=== PATIENT | female | born 1985 | race Caucasian/White ===

== ENCOUNTER 2017-03-29 15:15 | Emergency (ER) | payer OTHER | END 2017-03-29 18:25 | disposition home or self-care (01) | LOC: FTE 15:15 | DX: M54.12 Radiculopathy, cervical region (principal); Z76.0 Encounter for issue of repeat prescription | CPT/HCPCS: 99284; Z7502 ==

== ENCOUNTER 2017-04-06 05:07 | Emergency (ER) | payer OTHER ==
[2017-04-06] MEDS: predniSONE 20 MG TAB PO (06:41)
[2017-04-06] MEDS: DIPHENHYDRAMINE 25 MG CAP PO (06:42)
== END 2017-04-06 06:58 | disposition home or self-care (01) ==
LOC: FTE 05:07
DX: R21 Rash and other nonspecific skin eruption (principal); F17.210 Nicotine dependence, cigarettes, uncomplicated
CPT/HCPCS: 99283; J7512

== ENCOUNTER 2017-07-23 23:22 | Emergency (ER) | payer SELFPAY, OTHER | END 2017-07-24 01:04 | disposition left against medical advice (07) | LOC: FTE 23:22 | DX: Z53.21 Procedure and treatment not carried out due to patient leaving prior to being seen by health care provider (principal) ==

== ENCOUNTER 2017-09-11 17:45 | Emergency (ER) | payer OTHER | END 2017-09-11 18:41 | disposition home or self-care (01) | LOC: FTE 17:45 | DX: R22.0 Localized swelling, mass and lump, head (principal); Z71.1 Person with feared health complaint in whom no diagnosis is made; Z87.891 Personal history of nicotine dependence | CPT/HCPCS: 99283; Z7502 ==

== ENCOUNTER 2017-10-17 04:21 | Emergency (ER) | payer OTHER | END 2017-10-17 05:16 | disposition home or self-care (01) | LOC: FTE 04:21 | DX: Z76.0 Encounter for issue of repeat prescription (principal); J45.909 Unspecified asthma, uncomplicated; F17.210 Nicotine dependence, cigarettes, uncomplicated | CPT/HCPCS: 99281; Z7502 ==

== ENCOUNTER 2018-01-09 05:03 | Emergency (ER) | payer OTHER | END 2018-01-09 06:07 | disposition home or self-care (01) | LOC: FTE 05:03 | DX: T16.1XXA Foreign body in right ear, initial encounter (principal); J45.909 Unspecified asthma, uncomplicated; F17.210 Nicotine dependence, cigarettes, uncomplicated; X58.XXXA Exposure to other specified factors, initial encounter; Y92.9 Unspecified place or not applicable | CPT/HCPCS: 69200; 99282-25 ==

== ENCOUNTER 2018-05-20 01:04 | Emergency (ER) | payer SELFPAY, OTHER | END 2018-05-20 02:40 | disposition left against medical advice (07) | LOC: FTE 01:04 | DX: Z53.21 Procedure and treatment not carried out due to patient leaving prior to being seen by health care provider (principal) ==

== ENCOUNTER 2018-05-23 12:22 | Emergency (ER) | payer OTHER ==
[2018-05-23] MEDS: DIPHENHYDRAMINE 25 MG CAP PO (14:41)
[2018-05-23] MEDS: ACETAMINOPHEN 500 MG TAB PO (14:41)
== END 2018-05-23 15:43 | disposition home or self-care (01) ==
LOC: FTE 15:43
DX: R21 Rash and other nonspecific skin eruption (principal)
CPT/HCPCS: 99282; Z7502

== ENCOUNTER 2018-06-02 12:38 | Emergency (ER) | payer OTHER | END 2018-06-02 15:37 | disposition home or self-care (01) | LOC: FTE 12:38 | DX: L21.9 Seborrheic dermatitis, unspecified (principal); R05 Cough; J45.909 Unspecified asthma, uncomplicated; Z76.0 Encounter for issue of repeat prescription | CPT/HCPCS: 99283; Z7502 ==

== ENCOUNTER 2018-06-16 20:37 | Emergency (ER) | payer SELFPAY, OTHER | END 2018-06-16 22:53 | disposition left against medical advice (07) | LOC: FTE 20:37 | DX: Z53.21 Procedure and treatment not carried out due to patient leaving prior to being seen by health care provider (principal) ==

== ENCOUNTER 2018-09-04 04:36 | Emergency (ER) | payer OTHER | END 2018-09-04 05:32 | disposition home or self-care (01) | LOC: FTE 04:36 | DX: M25.50 Pain in unspecified joint (principal); J02.9 Acute pharyngitis, unspecified; R11.2 Nausea with vomiting, unspecified; J45.909 Unspecified asthma, uncomplicated | CPT/HCPCS: 99282; Z7502 ==

== ENCOUNTER 2018-09-25 18:08 | Emergency (ER) | payer OTHER ==
[2018-09-25] MEDS: LORAZEPAM 0.5 MG TAB PO (19:24)
== END 2018-09-25 19:30 | disposition home or self-care (01) ==
LOC: FTE 18:08
DX: F15.10 Other stimulant abuse, uncomplicated (principal); J45.909 Unspecified asthma, uncomplicated
CPT/HCPCS: 93005; 99283-25

== ENCOUNTER 2018-10-15 08:18 | Emergency (ER) | payer OTHER | END 2018-10-15 09:30 | disposition home or self-care (01) | LOC: FTE 09:30 | DX: L55.9 Sunburn, unspecified (principal); J45.909 Unspecified asthma, uncomplicated; R52 Pain, unspecified | CPT/HCPCS: 99282; Z7502 ==

== ENCOUNTER 2018-10-20 03:50 | Emergency (ER) | payer OTHER ==
[2018-10-20 04:43] LABS: ADD UMIC YES; UR ASCORBIC ACID 20 mg/dL (NEGATIVE); UR BACTERIA FEW /HPF (NONE SEEN); UR BILIRUBIN (Dip) NEGATIVE (NEGATIVE); UR BLOOD (Dip) NEGATIVE (NEGATIVE); UR CLARITY SLIGHTLY CLOUDY (CLEAR); UR COLOR YELLOW (YELLOW); UR GLUCOSE (Dip) NEGATIVE (NEGATIVE); UR KETONES (Dip) NEGATIVE (NEGATIVE); UR LEUKOCYTE ESTERASE (Dip) TRACE Leu/ul (NEGATIVE); UR MUCUS FEW /HPF (NONE SEEN); UR NITRITE (Dip) NEGATIVE (NEGATIVE); UR RBC 6 /HPF (0-5); UR SPECIFIC GRAVITY (Dip) 1.018 (1.003-1.030); UR SQUAMOUS EPITHELIAL CELL FEW /HPF (FEW); UR TOTAL PROTEIN (Dip) NEGATIVE (NEGATIVE); UR UROBILINOGEN (Dip) NEGATIVE (NEGATIVE); UR WBC 11 /HPF (0-5)
[2018-10-20] MEDS: DEXAMETHASONE 10 MG/ML 1 ML INJ IM (05:05)
[2018-10-20] MEDS: KETOROLAC 30 MG INJ IM (05:05)
== END 2018-10-20 05:30 | disposition home or self-care (01) ==
LOC: FTE 03:50
DX: M54.6 Pain in thoracic spine (principal); J45.909 Unspecified asthma, uncomplicated; F17.210 Nicotine dependence, cigarettes, uncomplicated
CPT/HCPCS: 81001; 81025; 96372; 99284-25